=== PATIENT | female | born 1955 | race African-American/Black ===

== ENCOUNTER 2017-01-10 10:10 | Inpatient (IN) ==
[2017-01-10] MEDS ORDERED: DEXAMETHASONE 10 MG/1 ML VIAL IM STA (10:30)
[2017-01-10] MEDS ORDERED: KETOROLAC 60 MG/2 ML VIAL IM STA (10:30)
--- NOTE | 2017-01-10 10:32 | Emergency Department Note ---
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 Denies LOC. 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 Since that time she has had rapid swelling of the joint as well as significant pain with severe pain on weight bearing. She has no prior history of arthritis history are knee surgery. Currently she is stable medically. Onset (ago): hour(s) (Patient presents 1 hour post incident) Allergies/Adverse Reactions: Allergies Allergy/AdvReac Type Severity Reaction Status Date / Time No Known Allergies Allergy Verified 01/10/17 10:14 Review of System - Review of System 12 point system: reviewed and no additional remarkable complaints except as stated - Review of System Constitutional: Present: as per HPI Musculoskeletal: Present: as per HPI Medical,Surgical,& Family Hx - Social History Smoking Status: Smoker, status unknown Exam Physical Examination: GENERAL: Well developed, well nourished elderly black female in no acute distress. HEENT: Normocephalic. No trauma. Moist mucous membranes. EOMI. PERRLA. ENT NML NECK: Supple. No adenopathy. CARDIAC: Regular. No murmurs. Heart rate 54 CHEST: Clear to auscultation. No respiratory distress. O2 sat 98% ABDOMEN: Soft. Nontender. Active bowel sounds. EXTREMITIES: No trauma. Large left knee joint effusion with resistance to range of motion due to pain. No pedal edema. SKIN: No diaphoresis. No rash. NEURO: Alert. No focal deficits. Vital Signs: Vital Signs Temperature 97.8 F 01/10/17 10:14 Pulse Rate 54 L 01/10/17 10:14 Respiratory Rate 18 01/10/17 10:14 Blood Pressure 161/101 01/10/17 10:14 O2 Sat by Pulse Oximetry 98 01/10/17 10:14 Course - Reevaluation(s) Reevaluation #1: Advised patient of need for surgical repair and hospitalization. - Consultations Consultation #1: Discussed with Dr. Phelan who will admit for further evaluation treatment. Results - Diagnostic Findings Procedure: X-ray: image reviewed by me, report reviewed by me (Left knee: Comminuted patella fracture) Disposition Clinical Impression: Comminuted left patella fracture Condition: Stable Time of Disposition: 11:03
[2017-01-10] MEDS ORDERED: HYDROmorphone 2 MG/1 ML VIAL IM STA (10:37)
[2017-01-10] MEDS ORDERED: DEXAMETHASONE 10 MG/1 ML VIAL ONE (10:42)
[2017-01-10] MEDS ORDERED: HYDROmorphone 2 MG/1 ML VIAL ONE (10:42)
[2017-01-10] MEDS ORDERED: KETOROLAC 60 MG/2 ML VIAL IM ONE (10:42)
--- NOTE | 2017-01-10 10:59 | XRay Report ---
History is fall with right knee pain and swelling following injury There is a mildly comminuted fracture through the patella with the 1 cm distraction of fracture fragments and prominent overlying soft tissue swelling Minimal osteophytes present Impression: Distracted patellar fracture PROCEDURE INTERPRETED AT [facility] DEPARTMENT OF RADIOLOGY Final Report Signed by: Dr. Arlene Schuster
[2017-01-10] MEDS ORDERED: HYDROmorphone 2 MG/1 ML VIAL IV PRN ×2 (11:17→17:27)
[2017-01-10] MEDS ORDERED: ONDANSETRON 4 MG/2 ML VIAL IV PRN ×2 (11:17→17:27)
[2017-01-10] MEDS ORDERED: ONDANSETRON 4 MG/2 ML VIAL ONE (11:37)
--- NOTE | 2017-01-10 11:38 | Orthopedic History & Physical ---
Assessment and Plan (1) Left patella fracture Status: Acute Assessment and plan: I have advised open reduction fixation of her left patella. I discussed the postoperative course and the risks and benefits. Risks include but not limited to infection, bleeding, anesthesia, thromboembolic event, , need for hardware removal, arthritis and stiffness. I briefly discussed anticipation of return to work will be around 12 weeks. All questions were answered. Will obtain preoperative labs and studies. Current Visit: Yes Qualifiers: Encounter type: initial encounter Fracture type: closed Fracture morphology: comminuted Fracture alignment: displaced Qualified Code(s): S82.042A - Displaced comminuted fracture of left patella, initial encounter for closed fracture History of Present Illness Chief complaint: Left knee pain History of present illness: Ms. Cohn is a 61 year old female who sustained a work injury about 940 this morning. She fell directly on her left knee after slipping on corn. She denies any previous history of problems with her left knee. She denies any other injury. No numbness or tingling. She was unable to ambulate on her leg after the fall. Allergies Allergy/AdvReac Type Severity Reaction Status Date / Time No Known Allergies Allergy Verified 01/10/17 10:14 12 point system: reviewed and no additional remarkable complaints except as stated Medical,Surgical,& Family Hx - Social History Smoking Status: Smoker, status unknown Exam - Constitutional Vitals: Period Temp Pulse Resp BP Sys/Patterson Pulse Ox Last 24 Hr 97.8 F 54 18 161/101 98 Alert and oriented Lungs clear to auscultation Heart regular rate and rhythm Abdomen soft. CT LS spine is nontender. Bilateral upper extremities and right lower extremity are nontender and without acute deformity. Left lower extremity shows skin composition [employer] grossly intact to her foot and ankle. She is unable to perform a straight leg raise. She has a moderate knee effusion with a palpable defect consistent with the patella fracture. Radiographs knee demonstrate a displaced comminuted patella fracture.
[2017-01-10 11:40] LABS: Basophils % 0.3 % (0.0-0.8); Eosinophils # 0.1 10*3/uL (0.0-0.87); Hematocrit 38.5 VOL% (35.7-47.0); Immature Granulocytes % 0.5 %; Immature Granulocytes Absolute 0.05 #; Lymphocytes # 2.9 10*3/uL (1.4-4.0); Lymphocytes % 28.1 % (21.3-54.2); Mean Corpuscular HGB Conc 33.8 GM/DL (32-36); Mean Corpuscular Hemoglobin 27 PG (27-34); Mean Corpuscular Volume 80.2 FL (87-102); Mean Platelet Volume 11.6 FL (9.6-12.0); Monocytes # 0.5 10*3/uL (0.11-0.8); Monocytes % 4.5 % (1.7-12.7); Neutrophils # 6.9 10*3/uL (1.4-7.4); Neutrophils % 65.6 % (38.7-73.9); Platelet Count 202 T/CUMM (130-400); Red Cell Distribution Width 15.6 % (9.3-17.3); White Blood Count 10.4 T/CUMM (4-12)
--- NOTE | 2017-01-10 11:40 | Order Completion Report ---
See report scanned to EMR
--- NOTE | 2017-01-10 11:42 | XRay Report ---
History is preop respiratory screening The heart is mildly enlarged There is mild vascular crowding and minimal stranding in the lung bases without confluent infiltrates seen. Impression: 1. Mild cardiomegaly 2. Mild scarring and/or hypoaeration changes in the lung bases PROCEDURE INTERPRETED AT [facility] DEPARTMENT OF RADIOLOGY Final Report Signed by: Dr. Arlene Schuster
[2017-01-10] MEDS ORDERED: ONDANSETRON 4 MG/2 ML VIAL IV STA (11:43)
[2017-01-10 11:48] LABS: PT Patient Result 10.6 SECS; Partial Thromboplastin Time 29.9 SECS (0-40)
[2017-01-10 12:09] LABS: Alanine Aminotransferase 23 U/L (13-56); Albumin 3.6 G/DL (3.4-5.0); Alkaline Phosphatase 76 U/L (45-117); Aspartate Amino Transferase 18 U/L (0-37); Bilirubin,Total < 0.39 MG/DL (0.2-1.0); Blood Urea Nitrogen 11 MG/DL (7-18); Calcium 9.2 MG/DL (8.5-10.1); Glucose 110 MG/DL (74-106); Osmolality,Calculated 280.3 MOS/KG (273-304); Potassium 3.6 MMOL/L (3.5-5.1); Sodium 141 MMOL/L (136-145); Total Protein 7.7 G/DL (6.4-8.3)
[2017-01-10] MEDS: LACTATED RINGERS 1,000 ML IV SCH ×2 (12:45→22:35)
[2017-01-10] MEDS ORDERED: ceFAZolin 1,000 MG VIAL ONE (13:14)
[2017-01-10] MEDS ORDERED: SODIUM CHLORIDE 0.9% 50 ML IV ONE (13:15)
--- NOTE | 2017-01-10 15:50 | Operative Note ---
Procedure: DIAGNOSIS: Left displaced, comminuted patella fracture PROCEDURE: Open reduction and fixation left displaced comminuted patella fracture SURGEON: [place] ANESTHESIA: General with anticipated postoperative adductor canal block PROCEDURE and FINDINGS: After adequate anesthesia was induced, the patient was prepped and draped in usual sterile fashion. Limb was exsanguinated with Esmarch. Tourniquet is inflated 300 mmHg. Estimated tourniquet time was 44 minutes. A longitudinal, midline incision was made. Fracture was exposed. Hematoma was removed. The joint was inspected. The exposed cartilage within the femoral trochlea appeared to be intact as well as the exposed cartilage on the undersurface of the patella. The fracture was mostly transverse with several osteochondral fragments. The fracture was reduced and secured with three 0.0625 K wires. An 18-gauge vneubh-ig-alwao tension band was placed. Pins were bent and cut. The medial and lateral retinaculum was repaired with multiple 0 Vicryl [id number] sutures. Subcutaneous tissue was closed with 3-0 Vicryl interrupted, buried suture. Skin was closed with a 4-0 subcuticular Monocryl suture. Mastisol and Steri-Strips were applied followed by a knee immobilizer. Surgeon / Physician: Delfino Phelan Jr. Results - Labs CBC & BMP: 01/10/17 11:30 01/10/17 11:30 Discharge Plan - Discharge Medications No Action Ibuprofen [Advil] 400 mg PO Q6-8H PRN PRN Reason: Pain - Follow Up or Referral - Forms/Instructions
[2017-01-10] MEDS ORDERED: BACITRACIN OINT 0.9 GM PACK TOP ONE (16:27)
[2017-01-10] MEDS ORDERED: MAGNESIUM HYDROXIDE SUSP 30 ML UDCUP PO PRN (16:49)
[2017-01-10] MEDS ORDERED: MORPHINE 2 MG/1 ML SYRINGE IV PRN ×2 (16:51)
[2017-01-10] MEDS ORDERED: KETOROLAC 30 MG/1 ML VIAL IV PRN (16:51)
--- NOTE | 2017-01-10 17:01 | XRay Report ---
Exam: XR patella LT Date: 01/10/2017 12:00 AM Comparison: 01/10/2017 Indication: ORIF left patella Technique:[Fluoroscopy time of 6.6 seconds documented. 2 films were obtained. AP and lateral films were obtained.] Findings: The comminuted displaced fracture of the left patella is in satisfactory position alignment following insertion of metallic wires with tension band. Small metallic densities are noted. Impression: Satisfactory internal fixation of the fracture of the left patella. PROCEDURE INTERPRETED AT [facility] DEPARTMENT OF RADIOLOGY Final Report Signed by: Dr. Sandra Villa
[2017-01-10] MEDS ORDERED: ROPIVACAINE 0.5% 30 ML VIAL ONE (17:07)
--- NOTE | 2017-01-10 17:09 | Anesthesia Post-Op ---
Anesthesia Post OP - Post Ansesthetic Evaluation Patient seen in post op: Yes Resp: within normal limits CV: within normal limits Mental: within normal limits Temp: within normal limits Envv-[id number]-Dpzlcsytu: within normal limits Nausea and Vomiting: within normal limits Pain: within normal limits
[2017-01-10] MEDS ORDERED: MEPERIDINE 25 MG/1 ML VIAL ONE (17:17)
[2017-01-10] MEDS ORDERED: PROPOFOL 200 MG/20 ML VIAL IV ONE (17:26)
[2017-01-10] MEDS ORDERED: fentaNYL 100 MCG/2 ML VIAL ONE (17:26)
[2017-01-10] MEDS ORDERED: SEVOFLURANE 1 UNIT/15 MINUTE INH ONE (17:26)
[2017-01-10] MEDS ORDERED: GLYCOPYRROLATE 0.4 MG/2 ML VIAL ONE (17:27)
[2017-01-10] MEDS ORDERED: LACTATED RINGERS 1,000 ML IV ONE (17:27)
[2017-01-10] MEDS ORDERED: ROCURONIUM 100 MG/10 ML VIAL IV ONE (17:27)
[2017-01-10] MEDS ORDERED: NEOSTIGMINE 10 MG/10 ML VIAL ONE (17:27)
[2017-01-10] MEDS ORDERED: MEPERIDINE 25 MG/1 ML VIAL IV PRN (17:52)
[2017-01-11 05:57] LABS: Basophils % 0.1 % (0.0-0.8); Hematocrit 35.7 VOL% (35.7-47.0); Hemoglobin 11.9 GM/DL (12.0-16.0); Immature Granulocytes % 0.4 %; Immature Granulocytes Absolute 0.04 #; Lymphocytes # 1.3 10*3/uL (1.4-4.0); Lymphocytes % 12.1 % (21.3-54.2); Mean Corpuscular HGB Conc 33.3 GM/DL (32-36); Mean Corpuscular Hemoglobin 27 PG (27-34); Mean Corpuscular Volume 81.1 FL (87-102); Mean Platelet Volume 12.8 FL (9.6-12.0); Monocytes # 0.5 10*3/uL (0.11-0.8); Monocytes % 4.8 % (1.7-12.7); Neutrophils # 9.2 10*3/uL (1.4-7.4); Neutrophils % 82.6 % (38.7-73.9); Platelet Count 161 T/CUMM (130-400); Red Cell Distribution Width 15.6 % (9.3-17.3); White Blood Count 11.1 T/CUMM (4-12)
[2017-01-11 06:27] LABS: Calcium 8.9 MG/DL (8.5-10.1); Osmolality,Calculated 281.1 MOS/KG (273-304); Potassium 4.5 MMOL/L (3.5-5.1)
[2017-01-11 10:59] VITALS: BP 130/55
--- NOTE | 2017-01-11 11:19 | Orthopedic Progress Note ---
Assessment and Plan (1) Left patella fracture Status: Acute Assessment and plan: I have advised open reduction fixation of her left patella. I discussed the postoperative course and the risks and benefits. Risks include but not limited to infection, bleeding, anesthesia, thromboembolic event, , need for hardware removal, arthritis and stiffness. I briefly discussed anticipation of return to work will be around 12 weeks. All questions were answered. Will obtain preoperative labs and studies. Current Visit: Yes Qualifiers: Encounter type: initial encounter Fracture type: closed Fracture morphology: comminuted Fracture alignment: displaced Qualified Code(s): S82.042A - Displaced comminuted fracture of left patella, initial encounter for closed fracture Orthopedics - Subjective Interval history: Ms Cohn is comfortable. Her dressing is clean, dry and intact. Her left foot is neurovascularly unchanged. Impression: Postop 1 status post open reduction fixation left patella Plan: Discharge instructions were reviewed. Follow-up appointment in 10-14 days. Weightbearing as tolerated with walker detection. Wear knee immobilizer at all times. Remove for skin checks and hygiene purposes daily. Start daily dry dressing changes in 72 hours. Leave Steri-Strips on. Exam - Constitutional Vitals: Period Temp Pulse Resp BP Sys/Patterson Pulse Ox Last 24 Hr 97.0 F-98.7 F 42-74 16-74 114-161/55-101 95-100 Results - Labs CBC & BMP: 01/11/17 04:50 01/11/17 04:50 Specialty Discharge - Follow Up or Referrals Follow up with: Delfino Phelan Jr., MD [Physician] - 01/21/17 1:25 pm
== END 2017-01-11 13:10 | disposition home or self-care (01) | DRG 517 ==
LOC: N.ED 10:10 → N.EDINP 11:15 → N.SDSINP 13:17 → N.3E 18:17
PROVIDERS: ADMIT Orthopaedic Surgery; ATTEND Orthopaedic Surgery